=== PATIENT | female | born 1970 | race Caucasian/White ===

== ENCOUNTER 2025-02-06 09:00 | Day surgery (SDC) | payer OTHER ==
[2025-01-30 09:02] VITALS: BP 115/74
[~2025-02-06] VITALS: Ht 152.4 cm; Wt 99.3 kg
[~2025-02-06 09:00] MED LIST: BUSPIRONE HCL10 MG PO; NAPROXEN SODIU220 M1 PO; OMEPRAZOLE-BIC1 EAC1 PO; TRAZODONE HCL50 MG PO; VENLAFAXINE HC150 M1 PO
[2025-02-06] MEDS ORDERED: POVIDONE-IODINE 118 ML BOTT TOP ONE (11:21)
[2025-02-06] MEDS ORDERED: CEFAZOLIN SODIUM 1,000 MG VIAL ONE (11:21)
== END 2025-02-06 18:05 | disposition home or self-care (01) ==
LOC: CIR.AMB 09:00
PROVIDERS: ATTEND Obstetrics & Gynecology
DX: N95.0 Postmenopausal bleeding (principal)